=== PATIENT | female | born 2000 | race Caucasian/White ===

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

== ENCOUNTER 2024-02-02 09:56 | Emergency (ER) | payer BC, OTHER ==
[~2024-02-02] VITALS: Ht 160 cm; Wt 63.0 kg
[~2024-02-02 09:56] MED LIST changes: +ETON1VAG7 PV; +FLUO-96 PO; -FLUO20CA20 PO; -HYDR-3910 PO; +HYDR25TA87 PO; -NUVAMIS2 PV
[2024-02-02] MEDS ORDERED: ACET325C5 PO (10:08)
[2024-02-02] MEDS ORDERED: CEFD300C PO (10:23)
[2024-02-02 10:39] VITALS: BP 133/84; TEMP 97.5; O2SAT 99
== END 2024-02-02 10:41 | disposition home or self-care (01) ==
LOC: M ED 09:56
DX: H65.01 Acute serous otitis media, right ear (principal); H66.002 Acute suppurative otitis media without spontaneous rupture of ear drum, left ear; Z88.1 Allergy status to other antibiotic agents; Z79.1 Long term (current) use of non-steroidal anti-inflammatories (NSAID); Z79.2 Long term (current) use of antibiotics

== ENCOUNTER 2024-03-14 17:35 | Emergency (ER) | payer BC ==
[~2024-03-14] VITALS: Ht 160 cm; Wt 63.2 kg
[~2024-03-14 17:35] MED LIST changes: +ACET325C5 PO; +CEFD300C PO
[2024-03-14 17:54] VITALS: BP 147/94; TEMP 98; O2SAT 100
[2024-03-14 21:07] LABS: Trichomonas vaginalis (AMP) NOT DETECTED (NEGATIVE)
[2024-03-14 21:31] LABS: GC DNA AMPLIFICATION NEGATIVE (NEGATIVE)
[2024-03-14] MEDS ORDERED: AZIT500T5 PO (23:56)
[2024-03-18 15:45] LABS: HSV SOURCE Serum; HSV-1 DNA Not Detected (Not Detected); HSV-2 DNA Not Detected (Not Detected)
== END 2024-03-14 20:03 | disposition home or self-care (01) ==
LOC: M ED 17:35
DX: J04.0 Acute laryngitis (principal); H65.03 Acute serous otitis media, bilateral; F17.210 Nicotine dependence, cigarettes, uncomplicated; Z88.1 Allergy status to other antibiotic agents; Z79.1 Long term (current) use of non-steroidal anti-inflammatories (NSAID); Z79.2 Long term (current) use of antibiotics

== ENCOUNTER 2024-12-16 15:58 | Outpatient (RCR) | payer OTHER ==
[~2024-12-16 15:58] MED LIST changes: +AZIT500T5 PO
== END 2024-12-24 ==
LOC: M OUTALCOH 15:58
PROVIDERS: ATTEND Psychiatry & Neurology Psychiatry
DX: F15.10 Other stimulant abuse, uncomplicated (principal); F17.200 Nicotine dependence, unspecified, uncomplicated

== ENCOUNTER 2025-01-06 15:39 | Outpatient (RCR) | payer OTHER | END 2025-01-24 | LOC: M OUTALCOH 15:39 | PROVIDERS: ATTEND Psychiatry & Neurology Psychiatry | DX: F15.10 Other stimulant abuse, uncomplicated (principal); F17.200 Nicotine dependence, unspecified, uncomplicated ==